=== PATIENT | male | born 1955 | race Caucasian/White ===

== ENCOUNTER 2019-11-26 09:33 | Outpatient (CLI) | payer OTHER ==
[~2019-11-26 09:33] MED LIST: Magnevist 469MG/ML 20 ML VIAL ONE
--- NOTE | 2019-11-26 11:01 | MRI ---
MRI BRAIN WITH AND WITHOUT CONTRAST: DATE: 11/26/2019 HISTORY: 64-year-old male for follow-up of C 71.9 brain tumor COMPARISON: 09/27/2019 TECHNIQUE: Multiplanar, multisequence MRI of the brain performed pre- and post-IV injection of gadolinium based contrast agent, on the 3 Callie magnet. FINDINGS: There is an approximately 5.5 x 3.5 x 4.5 cm intra-axial mass occupying almost the entire anterior po rtion of the right temporal lobe, consisting of heterogeneously hyperintense signal on T2 WI and FLAIR, moderately hypointense relative to brain parenchyma on T1 WI, abutting the M1 and M2 segments of right middle cerebral artery, displacing the sylvian fissure, displacing the uncus of the right temporal lobe medially such that it flattens and deforms the right cerebral peduncle, and causing rig ht to left midline shift of the septum pellucidum by approximately 0.4 cm. The mass exhibits little or no enhancement. It mildly extrinsically compresses and narrows the right lateral ventricle. No obs tructive hydrocephalus. The temporal horn of the right lateral ventricle is completely effaced. No ventricular dilation. No evidence of internal hemorrhage. The increased resolution of the 3T magnet demonstrates that while major branches of the right MCA are displaced by the mass, small branches of the MCA travel through the mass. Not mentioned on the prior report, there is what appears to be a 2 x 0.7 cm cystic component of the mass centrally. This h as not changed. IMPRESSION: 1. 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 2. No interval change since 09/27/2019
== END 2019-11-26 09:34 | disposition home or self-care (01) ==
LOC: TBSIIMAG 09:33
PROVIDERS: ATTEND Neurological Surgery
DX: D49.6 Neoplasm of unspecified behavior of brain (principal); G93.89 Other specified disorders of brain
CPT/HCPCS: 70553; 82565; A9579

== ENCOUNTER 2020-03-25 08:36 | Outpatient (CLI) | payer OTHER ==
--- NOTE | 2020-03-25 10:48 | MRI ---
MRI BRAIN WITH AND WITHOUT CONTRAST: Date: 03/25/2020 INDICATION: Brain tumor. Comparison made to prior exam of 11/26/2019. FINDINGS: A mass lesion in right temporal lobe is again noted. This produces mass effect and vasogenic edema. N o enhancement identified. The size of this lesion has not significantly changed from 11/26/2019 natasha nuing to measure approximately 5.3 cm AP dimension measuring axial FLAIR. No other enhancement. No re stricted diffusion. There are other scattered white matter hyperintensities which are nonspecific and most consistent wit h mild chronic ischemic white matter change. The intracranial internal carotid arteries, cerebral arteries, and dural venous sinuses show expected flow-voids. Paranasal sinuses show mild mucosal edema in the maxillary sinuses and a mucus retention cyst in the floor of the right maxillary antrum which appears stable. IMPRESSION: The nonenhancing mass in the right temporal lobe is stable when compared to 11/26/2019. POS: AH
[2020-03-25] MEDS ORDERED: Magnevist 469MG/ML 20 ML VIAL ONE (13:10)
== END 2020-03-25 08:37 | disposition home or self-care (01) ==
LOC: MRI 08:36
PROVIDERS: ATTEND Neurological Surgery
DX: C71.9 Malignant neoplasm of brain, unspecified (principal)
CPT/HCPCS: 70553; A9579

== ENCOUNTER 2023-08-02 15:03 | Observation (INO) | payer MEDICARE, BC ==
[2023-08-02 16:34] LABS: #Monocytes 0.6 thou/uL (0.11-0.59); #Neutrophils 6.2 thou/uL (1.40-6.50); %Basophils 0.4 % (0.0-1.0); %Eosinophils 0.3 % (0.0-10.0); %Lymphocytes 11.9 % (21.0-51.0); %Monocytes 7.4 % (0.0-10.0); %Neutrophils 79.4 % (42.0-75.0); Hematocrit 41.1 % (42.0-52.0); Hemoglobin 13.8 g/dL (14.0-18.0); Mean Corpuscular HGB CONC 33.6 g/dL (32.0-36.0); Mean Corpuscular Hemoglobin 32.5 pg (27.0-31.0); Mean Corpuscular Volume 96.9 fl (78.0-98.0); Platelet Count 307 10x3/uL (130-400); RBC Distribution Width 13.7 % (11.5-14.5); Red Blood Cell (RBC) Count 4.24 mill/uL (4.70-6.10); White Blood Cell (WBC) Count 7.8 10x3/uL (4.8-10.8)
[2023-08-02 17:02] LABS: ALT (SGPT) 20 U/L (8-55); AST (SGOT) 22 U/L (5-34); Albumin 4.2 g/dL (3.4-4.8); Alkaline Phosphatase 81 U/L (40-110); Anion Gap 23 mmol/L (10-20); BUN (Urea Nitrogen) 11 mg/dL (8.4-25.7); Bilirubin, Total 0.5 mg/dL (0.2-1.2); Calc. Creatinine Clearance 0 mL/min (70-130); Calcium 9.3 mg/dL (7.8-10.44); Carbon Dioxide 16 mmol/L (23-31); Chloride 101 mmol/L (98-107); Estimated GFR 72; Globulin 2.8 g/dL (2.4-3.5); Glucose 146 mg/dL (80-115); Magnesium 2.1 mg/dL (1.6-2.6); Potassium 4.6 mmol/L (3.5-5.1); Sodium 135 mmol/L (136-145)
[2023-08-02 17:05] LABS: Acetaminophen Less than 10 mcg/mL (10.0-30.0); Alcohol Less than 10.0 mg/dL (Less than 10); Salicylate Less than 8.0 mg/dL (15.0-30.0); Troponin I 0.014 ng/mL (< 0.028)
[2023-08-02 17:12] LABS: Critical Call Chem-Lactate NUR.LH12 @1712
[2023-08-02] MEDS ORDERED: Dextrose 50% Abboject 50 ML SYRINGE SLOW IVP PRN (18:43)
[2023-08-02] MEDS ORDERED: Glucagon 1 MG/ML KIT IM PRN (18:43)
[2023-08-02] MEDS ORDERED: Lorazepam 2 MG/ML VIAL SLOW IVP PRN (18:43)
[2023-08-02] MEDS ORDERED: HumaLOG 300 UNITS/3 ML VIAL SC PRN ×2 (18:43)
[2023-08-02] MEDS ORDERED: Acetaminophen 325 MG TAB PO PRN (18:43)
[2023-08-02] MEDS ORDERED: Nicotine 21 MG PATCH TD PRN (18:43)
[2023-08-02] MEDS ORDERED: Ondansetron ODT 4 MG TAB PO PRN (18:43)
[2023-08-02] MEDS ORDERED: Ondansetron PF 4 MG/2 ML Vial IVP PRN (18:43)
[2023-08-02] MEDS ORDERED: Dextrose 5% in Water 1,000 ML IV PRN (18:43)
[2023-08-02] MEDS ORDERED: levETIRAcetam 500 MG (5 mL) VIAL ONE (18:45)
[2023-08-02] MEDS ORDERED: Thiamine HCl 200 MG/2 ML VIAL ONE (18:45)
[2023-08-02 19:36] LABS: Amphetamine Not Detected (NotDetected); Barbiturates Screen Not Detected (NotDetected); Benzodiazepine Screen Not Detected (NotDetected); Cocaine Metabolite Screen Not Detected (NotDetected); Methadone Not Detected (NotDetected); Methamphetamine Not Detected (NotDetected); Opiate Screen Not Detected (NotDetected); Oxycodone Screen Not Detected (NotDetected); Phencyclidine (PCP) Not Detected (NotDetected); THC/Cannabinoid Screen Detected (NotDetected); Tricyclic Screen Not Detected (NotDetected)
[2023-08-02 20:06] LABS: Lactic Acid 1.8 mmol/L (0.5-2.2)
[2023-08-02] MEDS ORDERED: Electrolyte Replacement Protocol 1 EACH FS SCH (20:45)
[2023-08-02] MEDS ORDERED: traZODone HCl 50 MG TAB PO PRN (21:17)
[2023-08-02] MEDS ORDERED: Ketorolac Tromethamine 30 MG (1 mL) VIAL IVP SCH (21:30)
[2023-08-02 22:09] VITALS: BMI 25.0
[2023-08-02] MEDS ORDERED: Ketorolac Tromethamine 30 MG (1 mL) VIAL ONE (23:02)
[2023-08-02] MEDS: Lactated Ringer's 1,000 ML IV SCH (23:10)
[2023-08-03] MEDS ORDERED: traZODone HCl 50 MG TAB ONE (02:52)
[2023-08-03 04:34] LABS: #Eosinphils 0.1 thou/uL (0.0-0.7); #Monocytes 0.8 thou/uL (0.11-0.59); #Neutrophils 4.9 thou/uL (1.40-6.50); %Basophils 0.4 % (0.0-1.0); %Eosinophils 0.8 % (0.0-10.0); %Lymphocytes 25.2 % (21.0-51.0); %Monocytes 9.8 % (0.0-10.0); %Neutrophils 63.3 % (42.0-75.0); Hematocrit 34.8 % (42.0-52.0); Mean Corpuscular HGB CONC 34.5 g/dL (32.0-36.0); Mean Corpuscular Hemoglobin 32.6 pg (27.0-31.0); Mean Corpuscular Volume 94.6 fl (78.0-98.0); Mean Platelet Volume 9.2 fL (7.4-10.4); Platelet Count 255 10x3/uL (130-400); RBC Distribution Width 13.5 % (11.5-14.5); Red Blood Cell (RBC) Count 3.68 mill/uL (4.70-6.10); White Blood Cell (WBC) Count 7.8 10x3/uL (4.8-10.8)
[2023-08-03 04:45] LABS: Anion Gap 14 mmol/L (10-20); BUN (Urea Nitrogen) 9 mg/dL (8.4-25.7); Calc. Creatinine Clearance 100 mL/min (70-130); Calcium 8.4 mg/dL (7.8-10.44); Carbon Dioxide 22 mmol/L (23-31); Chloride 105 mmol/L (98-107); Estimated GFR 93; Glucose 85 mg/dL (80-115); Potassium 3.9 mmol/L (3.5-5.1); Sodium 137 mmol/L (136-145)
[2023-08-03] MEDS: Lactated Ringer's 1,000 ML IV SCH (07:05)
[2023-08-03] MEDS ORDERED: Folic Acid 1 MG TAB PO SCH (09:00)
[2023-08-03] MEDS ORDERED: Thiamine HCl 200 MG/2 ML VIAL SLOW IVP SCH (09:00)
[2023-08-03] MEDS ORDERED: Multivit, Therapeutic 1 TAB PO SCH (09:00)
[2023-08-03] MEDS ORDERED: Multivit, Therapeutic 1 TAB ONE (10:54)
[2023-08-03] MEDS ORDERED: Acetaminophen 325 MG TAB ONE (10:54)
[2023-08-03] MEDS ORDERED: Folic Acid 1 MG TAB ONE (10:54)
[2023-08-03] MEDS ORDERED: Thiamine HCl 200 MG/2 ML VIAL ONE (10:54)
[2023-08-03] MEDS ORDERED: Magnevist 469MG/ML 20 ML VIAL ONE (13:15)
[2023-08-03 15:44] VITALS: BP 156/89
[2023-08-03 15:46] VITALS: TEMP 97.9
[2023-08-03] MEDS ORDERED: levETIRAcetam 500 MG TAB PO SCH (21:00)
[2023-08-05] MEDS ORDERED: Thiamine 100 MG TAB PO SCH (20:45)
== END 2023-08-03 18:09 | disposition short-term general hospital (02) ==
LOC: ERS 15:03 → ERHOLD 18:43
PROVIDERS: ADMIT Physician Assistant; ATTEND Internal Medicine
DX: G40.89 Other seizures (principal); I10 Essential (primary) hypertension; E78.5 Hyperlipidemia, unspecified; E11.9 Type 2 diabetes mellitus without complications; E87.20 Acidosis, unspecified; I65.21 Occlusion and stenosis of right carotid artery; D53.9 Nutritional anemia, unspecified; F17.210 Nicotine dependence, cigarettes, uncomplicated; Z86.73 Personal history of transient ischemic attack (TIA), and cerebral infarction without residual deficits; Z79.82 Long term (current) use of aspirin; Z79.899 Other long term (current) drug therapy; Z98.890 Other specified postprocedural states
CPT/HCPCS: 70450; 70553; 71045; 72125; 80048; 80177; 80306; 80307; 82607; 83605; 83735; 84146; 84484; 85025; 93005; 93880; G0378 ×2; J1953; 36415; 80053; 84443; A9579; J1885; J3411; J7120